=== PATIENT | female | born 1980 | race Two or more races ===

== ENCOUNTER 2023-10-17 08:14 | Outpatient (CLI) | payer OTHER | END 2023-10-17 08:26 | disposition home or self-care (01) | LOC: MRI 08:14 | PROVIDERS: ATTEND Obstetrics & Gynecology Gynecologic Oncology | DX: K74.00 Hepatic fibrosis, unspecified (principal) | CPT/HCPCS: 72197; 74183 ==

== ENCOUNTER 2023-11-17 06:15 | Day surgery (SDC) | payer OTHER ==
[2023-11-07 09:59] LABS: PH,URINE 6.5 (5.0-8.0); URINE APPEARANCE Clear; URINE BILIRRUBIN Negative (NEGATIVE); URINE BLOOD Negative; URINE COLOR Yellow; URINE GLUCOSE Negative (NEGATIVE); URINE LEUKOCYTE Negative; URINE NITRATE Negative; URINE PROTEIN Negative (NEGATIVE); URINE UROBILINOGEN 0.2 E.U./dl
[2023-11-07 10:01] LABS: URINE BACTERIA 104.5 uL (0.0-1933); URINE EPITHELIAL CELLS 7.8 uL (0.0-38.8); URINE RBC 7.6 uL (0.0-20.8); URINE WBC 3.3 uL (0.0-23.2)
[2023-11-07 10:02] LABS: HEMATOCRIT 40.1 % (36.0-45.00); HEMOGLOBIN 13.6 g/dL (12.0-15.00); MEAN CELL VOLUME 93.8 fL (80.00-100.00); MEAN CORPUSCULAR HEMOGLOBIN 31.9 pg (27.00-32.0); PLATELET COUNT 282 K/uL (150-450); RED BLOOD COUNT 4.28 M/uL (4.00-6.00); RED CELL DISTRIBUTION WIDTH 13.1 % (11.5-14.5)
[2023-11-07 10:27] LABS: ALBUMIN 3.9 gm/dL (3.4-5.0); BILIRUBIN TOTAL 0.44 mg/dL (0.3-1.2); CALCIUM 9.6 mg/dL (8.5-10.1); CREATININE SERUM 0.61 mg/dL (0.55-1.02); GFR 107.56; GLOBULINA 3.4 G/DL (2.4-3.5); POTASSIUM 3.75 mEq/L (3.5-5.1); TOTAL PROTEIN 7.3 gm/dL (6.4-8.2)
[2023-11-07 10:36] LABS: INR < 0.93; PROTHROMBIN TIME 9.8 SECONDS (9.0-11.5)
[2023-11-08 10:08] LABS: CA 125 32.2 U/mL (0.0-38.1)
[~2023-11-17] VITALS: Ht 157.5 cm; Wt 52.6 kg
[2023-11-17] MEDS ORDERED: POVIDONE-IODINE 118 ML BOTT TOP ONE (12:31)
[2023-11-17] MEDS ORDERED: CEFAZOLIN SODIUM 1,000 MG VIAL ONE (12:32)
[2023-11-17] MEDS ORDERED: THROMBIN,HU/FIBRINOGEN/CALCIUM 10 ML SYRINGE TOP ONE (13:12)
[2023-11-17] MEDS ORDERED: VISTASEAL DUAL APPICATOR 1 EACH APPL TOP ONE (13:12)
[2023-11-17] MEDS ORDERED: CEFAZOLIN SODIUM 1,000 MG VIAL IV SCH (13:45)
[2023-11-17] MEDS ORDERED: VISTASEAL DUAL APPICATOR 1 EACH APPL TOP SCH (14:00)
[2023-11-17] MEDS ORDERED: THROMBIN,HU/FIBRINOGEN/CALCIUM 10 ML SYRINGE TOP SCH (14:00)
[2023-11-17] MEDS ORDERED: POVIDONE-IODINE 118 ML BOTT TOP SCH (14:00)
[2023-11-17] MEDS ORDERED: KETOROLAC TROMETHAMINE 30 MG VIAL IV ONE (15:15)
[2023-11-17] MEDS ORDERED: KETOROLAC TROMETHAMINE 30 MG VIAL ONE (16:54)
== END 2023-11-17 17:55 | disposition home or self-care (01) ==
LOC: CIR.AMB 06:15
PROVIDERS: ATTEND Obstetrics & Gynecology Gynecologic Oncology
DX: D27.0 Benign neoplasm of right ovary (principal); N83.11 Corpus luteum cyst of right ovary; Z88.6 Allergy status to analgesic agent; Z20.822 Contact with and (suspected) exposure to COVID-19; N73.6 Female pelvic peritoneal adhesions (postinfective)